=== PATIENT | male | born 1995 | race Caucasian/White ===

== ENCOUNTER 2018-03-12 04:01 | Emergency (ER) | payer OTHER ==
[2018-03-12 04:48] LABS: #Basophils 0.1 thou/uL (0.0-0.2); #Eosinphils 0.2 thou/uL (0.0-0.7); #Lymphocytes 2.7 thou/uL (1.20-3.40); #Monocytes 0.4 thou/uL (0.11-0.59); #Neutrophils 4.9 thou/uL (1.40-6.50); %Basophils 0.9 % (0.0-1.0); %Eosinophils 2.3 % (0.0-10.0); %Lymphocytes 32.2 % (21.0-51.0); %Monocytes 5.3 % (0.0-10.0); %Neutrophils 59.4 % (42.0-75.0); Hemoglobin 16.6 g/dL (14.0-18.0); Mean Corpuscular HGB CONC 34.2 g/dL (32.0-36.0); Mean Corpuscular Hemoglobin 30.7 pg (27.0-31.0); Mean Corpuscular Volume 89.8 fL (78.0-98.0); Mean Platelet Volume 6.1 fL (7.4-10.4); Platelet Count 289 thou/uL (130-400); RBC Distribution Width 12.6 % (11.5-14.5); Red Blood Cell (RBC) Count 5.39 mill/uL (4.70-6.10); White Blood Cell (WBC) Count 8.3 thou/uL (4.8-10.8)
[2018-03-12 05:01] LABS: ALT (SGPT) 106 U/L (8-55); AST (SGOT) 46 U/L (5-34); Albumin 4.6 g/dL (3.5-5.0); Alkaline Phosphatase 123 U/L (40-150); Anion Gap 12 mmol/L (10-20); BUN (Urea Nitrogen) 13 mg/dL (8.9-20.6); Bilirubin, Total 0.6 mg/dL (0.2-1.2); Calc. Creatinine Clearance 0 mL/min (70-130); Calcium 9.5 mg/dL (7.8-10.44); Carbon Dioxide 25 mmol/L (22-29); Chloride 105 mmol/L (98-107); Estimated GFR-MDRD Greater than 90; Globulin 3.1 g/dL (2.4-3.5); Glucose 115 mg/dL (70-105); Potassium 3.7 mmol/L (3.5-5.1); Protein, Total 7.7 g/dL (6.0-8.3); Sodium 138 mmol/L (136-145)
[2018-03-12] MEDS ORDERED: Promethazine HCl 25 MG/ML VIAL ONE (05:34)
[2018-03-12] MEDS ORDERED: Ondansetron ODT 4 MG TAB ONE (05:34)
[2018-03-12 07:11] LABS: Bilirubin Negative (Negative); Blood, Urine Negative (Negative); Clarity TURBID (Clear); Glucose, Urine (Dipstick) Negative (Negative); Leukocyte Negative (Negative); Nitrite Negative (Negative); Protein, Urine (Dipstick) Trace mg/dL (Neg-Trace); Specific Gravity, Urine 1.024 (1.002-1.036); pH, Urine 7.5 (5.0-9.0)
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
== END 2018-03-12 08:10 | disposition home or self-care (01) ==
LOC: ERS 04:01
DX: A09 Infectious gastroenteritis and colitis, unspecified (principal); F41.9 Anxiety disorder, unspecified; F31.9 Bipolar disorder, unspecified; Z79.899 Other long term (current) drug therapy
CPT/HCPCS: 36415; 74022; 80053; 81003; 85025; 96361; 96374; J2550; Q0162

== ENCOUNTER 2019-02-06 19:52 | Emergency (ER) | payer OTHER ==
[~2019-02-06 19:52] MED LIST: ISOVUE-370 76%-LOCM 1 ML ONE
[2019-02-06] MEDS ORDERED: Fentanyl 100 MCG/2 ML VIAL ONE (20:04)
[2019-02-06 20:13] LABS: #Basophils 0.1 thou/uL (0.0-0.2); #Eosinphils 0.2 thou/uL (0.0-0.7); #Lymphocytes 2.2 thou/uL (1.20-3.40); #Monocytes 0.4 thou/uL (0.11-0.59); %Lymphocytes 27.3 % (21.0-51.0); %Neutrophils 63.8 % (42.0-75.0); Hemoglobin 15.2 g/dL (14.0-18.0); Mean Corpuscular HGB CONC 34.4 g/dL (32.0-36.0); Mean Corpuscular Hemoglobin 32.2 pg (27.0-31.0); Mean Corpuscular Volume 93.6 fL (78.0-98.0); Mean Platelet Volume 6.7 fL (7.4-10.4); Platelet Count 261 thou/uL (130-400); RBC Distribution Width 12.3 % (11.5-14.5); Red Blood Cell (RBC) Count 4.71 mill/uL (4.70-6.10); White Blood Cell (WBC) Count 7.9 thou/uL (4.8-10.8)
[2019-02-06 20:18] LABS: INR-International Normal Ratio 1.1; PTT 30.7 SEC (22.9-36.1); Prothrombin Time 14.1 SEC (12.0-14.7)
[2019-02-06] MEDS ORDERED: diphenhydrAMINE 50 MG/ML VIAL ONE (20:20)
[2019-02-06] MEDS ORDERED: Famotidine/PF 20 mg/2ml Vial ONE (20:20)
[2019-02-06] MEDS ORDERED: methylPREDNISolone Sod Succ/PF 125 MG/2 ML VIAL ONE (20:20)
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
[2019-02-06 20:41] LABS: ALT (SGPT) 126 U/L (8-55); AST (SGOT) 70 U/L (5-34); Albumin 4.3 g/dL (3.5-5.0); Alcohol Less than 10 mg/dL (Less than 10); Alkaline Phosphatase 94 U/L (40-150); Anion Gap 13 mmol/L (10-20); BUN (Urea Nitrogen) 14 mg/dL (8.9-20.6); Bilirubin, Total 0.8 mg/dL (0.2-1.2); Calc. Creatinine Clearance 0 mL/min (70-130); Calcium 9.2 mg/dL (7.8-10.44); Carbon Dioxide 23 mmol/L (22-29); Chloride 107 mmol/L (98-107); Estimated GFR-MDRD 82; Globulin 2.6 g/dL (2.4-3.5); Glucose 106 mg/dL (70-105); Potassium 3.9 mmol/L (3.5-5.1); Protein, Total 6.9 g/dL (6.0-8.3); Sodium 139 mmol/L (136-145)
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
[2019-02-06] MEDS ORDERED: Morphine 2 MG/ML SYRINGE ONE (20:59)
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
== END 2019-02-06 22:50 | disposition home or self-care (01) ==
LOC: ERS 19:52
DX: S40.211A Abrasion of right shoulder, initial encounter (principal); F41.9 Anxiety disorder, unspecified; Z79.899 Other long term (current) drug therapy; V89.2XXA Person injured in unspecified motor-vehicle accident, traffic, initial encounter
CPT/HCPCS: 36415; 70450; 71045; 71260; 72125; 74177; 80053; 80307; 83605; 85025; 85610; 85730; 86850; 86900; 86901; 93005; 96374; 96375; G0390; J1200; J2270; J2930; J3010; Q9966; S0028

== ENCOUNTER 2019-04-29 01:19 | Emergency (ER) | payer OTHER ==
[2019-04-29 01:52] LABS: #Basophils 0.1 thou/uL (0.0-0.2); #Eosinphils 0.2 thou/uL (0.0-0.7); #Lymphocytes 2.7 thou/uL (1.20-3.40); #Monocytes 0.4 thou/uL (0.11-0.59); #Neutrophils 4.4 thou/uL (1.40-6.50); %Basophils 0.8 % (0.0-1.0); %Lymphocytes 34.6 % (21.0-51.0); %Monocytes 5.2 % (0.0-10.0); %Neutrophils 57.5 % (42.0-75.0); Hemoglobin 14.9 g/dL (14.0-18.0); Mean Corpuscular HGB CONC 33.6 g/dL (32.0-36.0); Mean Corpuscular Hemoglobin 30.5 pg (27.0-31.0); Mean Corpuscular Volume 90.9 fL (78.0-98.0); Mean Platelet Volume 6.9 fL (7.4-10.4); Platelet Count 277 thou/uL (130-400); RBC Distribution Width 12.5 % (11.5-14.5); Red Blood Cell (RBC) Count 4.89 mill/uL (4.70-6.10); White Blood Cell (WBC) Count 7.7 thou/uL (4.8-10.8)
[2019-04-29 02:22] LABS: ALT (SGPT) 113 U/L (8-55); AST (SGOT) 44 U/L (5-34); Albumin 4.3 g/dL (3.5-5.0); Alkaline Phosphatase 102 U/L (40-150); Anion Gap 13 mmol/L (10-20); BUN (Urea Nitrogen) 15 mg/dL (8.9-20.6); Bilirubin, Total 0.6 mg/dL (0.2-1.2); CK (CPK) 87 U/L (30-200); Calc. Creatinine Clearance 0 mL/min (70-130); Calcium 9.5 mg/dL (7.8-10.44); Carbon Dioxide 22 mmol/L (22-29); Chloride 106 mmol/L (98-107); Estimated GFR-MDRD Greater than 90; Globulin 2.8 g/dL (2.4-3.5); Glucose 98 mg/dL (70-105); Lipase 58 U/L (8-78); Potassium 3.7 mmol/L (3.5-5.1); Protein, Total 7.1 g/dL (6.0-8.3); Sodium 137 mmol/L (136-145)
[2019-04-29] MEDS ORDERED: diphenhydrAMINE 50 MG/ML VIAL ONE (02:34)
[2019-04-29] MEDS ORDERED: Famotidine/PF 20 mg/2ml Vial ONE (02:34)
[2019-04-29] MEDS ORDERED: methylPREDNISolone Sod Succ/PF 125 MG/2 ML VIAL ONE (02:34)
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
--- NOTE | 2019-04-29 08:04 | RAD ---
CHEST ONE VIEW: Indication: Chest pressure, shortness of breath. Comparison: 02-06-19 IMPRESSION: No acute cardiopulmonary abnormalities. Examination does not appear appreciably changed [facility]. POS: [facility]
[2019-04-29] MEDS ORDERED: ISOVUE-370 76%-LOCM 1 ML ONE (15:57)
== END 2019-04-29 04:25 | disposition home or self-care (01) ==
LOC: ERS 01:19
DX: R07.2 Precordial pain (principal); R10.9 Unspecified abdominal pain; F41.9 Anxiety disorder, unspecified; F32.9 Major depressive disorder, single episode, unspecified; Z79.899 Other long term (current) drug therapy
CPT/HCPCS: 71045; 74177; 80053; 82274; 82550; 83690; 84484; 85025; 85379; 93005; 94760; J0500; J1200; J2930; S0028

== ENCOUNTER 2019-04-29 19:50 | Emergency (ER) | payer OTHER ==
--- NOTE | 2019-04-29 20:19 | RAD ---
XR Hand Lt 3 View STANDARD HISTORY: Fall with hand and wrist pain COMPARISON: None. FINDINGS: There are no signs of fracture or dislocation. IMPRESSION: Negative left hand.
--- NOTE | 2019-04-29 20:19 | RAD ---
XR Wrist 3 Lt View STANDARD HISTORY: Fall with wrist pain COMPARISON: None. FINDINGS: There are no signs of fracture or dislocation. IMPRESSION: Negative left wrist.
== END 2019-04-29 21:20 | disposition home or self-care (01) ==
LOC: ERS 19:50
DX: M79.642 Pain in left hand (principal); F41.9 Anxiety disorder, unspecified; F32.9 Major depressive disorder, single episode, unspecified; Z79.899 Other long term (current) drug therapy; W18.2XXA Fall in (into) shower or empty bathtub, initial encounter
CPT/HCPCS: 71045; 74177; 80053; 82274; 82550; 83690; 84484; 85025; 85379; 93005; 94760; 96372; 96374; 96375; J0500; J1200; J2930; Q9966; S0028

== ENCOUNTER 2019-05-15 19:07 | Emergency (ER) | payer OTHER ==
[2019-05-15 20:12] LABS: #Basophils 0.1 thou/uL (0.0-0.2); #Eosinphils 0.1 thou/uL (0.0-0.7); #Monocytes 0.4 thou/uL (0.11-0.59); #Neutrophils 5.5 thou/uL (1.40-6.50); %Eosinophils 1.3 % (0.0-10.0); %Lymphocytes 32.7 % (21.0-51.0); %Monocytes 4.9 % (0.0-10.0); %Neutrophils 60.1 % (42.0-75.0); Hemoglobin 15.9 g/dL (14.0-18.0); Mean Corpuscular HGB CONC 34.2 g/dL (32.0-36.0); Mean Corpuscular Hemoglobin 31.9 pg (27.0-31.0); Mean Corpuscular Volume 93.3 fL (78.0-98.0); Mean Platelet Volume 6.6 fL (7.4-10.4); Platelet Count 301 thou/uL (130-400); RBC Distribution Width 13.5 % (11.5-14.5); Red Blood Cell (RBC) Count 4.99 mill/uL (4.70-6.10); White Blood Cell (WBC) Count 9.1 thou/uL (4.8-10.8)
[2019-05-15 20:32] LABS: ALT (SGPT) 86 U/L (8-55); AST (SGOT) 42 U/L (5-34); Albumin 4.4 g/dL (3.5-5.0); Alkaline Phosphatase 107 U/L (40-150); Anion Gap 15 mmol/L (10-20); BUN (Urea Nitrogen) 13 mg/dL (8.9-20.6); Bilirubin, Total 1.2 mg/dL (0.2-1.2); Calc. Creatinine Clearance 0 mL/min (70-130); Calcium 9.4 mg/dL (7.8-10.44); Carbon Dioxide 20 mmol/L (22-29); Chloride 110 mmol/L (98-107); Estimated GFR-MDRD 81; Glucose 90 mg/dL (70-105); Potassium 4.3 mmol/L (3.5-5.1); Protein, Total 7.4 g/dL (6.0-8.3); Sodium 141 mmol/L (136-145)
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
[2019-05-15] MEDS ORDERED: Ondansetron ODT 4 MG TAB ONE (21:06)
--- NOTE | 2019-05-15 21:53 | RAD ---
PORTABLE CHEST ONE VIEW: 05/15/19 at 9:41 p.m. HISTORY: Nausea, vomiting. FINDINGS: Comparison made with exam of 04/29/19. The heart size is normal. The lungs are expanded without focal areas of consolidation, pneumothoraces or pleural effusions. IMPRESSION: No radiographic evidence of acute cardiopulmonary process. POS: [facility]
[2019-05-15] MEDS ORDERED: Ondansetron PF 4 MG/2 ML Vial ONE (21:59)
[2019-05-15] MEDS ORDERED: Promethazine HCl 25 MG/ML VIAL ONE (22:23)
--- NOTE | 2019-05-15 22:47 | CT ---
CT ABDOMEN AND PELVIS WITHOUT CONTRAST: 05/15/19 HISTORY: Nausea and vomiting. FINDINGS: Absence of oral and IV contrast reduces the sensitivity of the exam particularly for the evaluation o f solid organs and bowel. The lung bases are clear. There is fatty infiltration of the liver. No free air, free fluid or lympha denopathy seen in the abdomen or pelvis. No calcified gallstones identified. Patient is post appendec carmen. No calculi are seen in the kidneys, ureters or urinary bladder. No hydroureteronephrosis is seen on e ither side. No acute osseous abnormalities are seen. The small bowel loops are not abnormally dilate d. IMPRESSION: 1. Fatty liver. 2. No evidence of urinary tract calculi or obstruction. POS: [facility]
== END 2019-05-16 00:25 | disposition home or self-care (01) ==
LOC: ERS 19:07
DX: K22.6 Gastro-esophageal laceration-hemorrhage syndrome (principal); R11.10 Vomiting, unspecified; R55 Syncope and collapse; R10.9 Unspecified abdominal pain; F41.9 Anxiety disorder, unspecified; F32.9 Major depressive disorder, single episode, unspecified; F17.290 Nicotine dependence, other tobacco product, uncomplicated; Z79.899 Other long term (current) drug therapy
CPT/HCPCS: 36415; 70450; 71045; 74176; 80053; 82274; 82550; 83690; 85025; 96361; 96365; 96375; J2405; J2550; Q0162

== ENCOUNTER 2019-05-19 15:36 | Emergency (ER) | payer OTHER ==
[2019-05-19 16:39] LABS: #Eosinphils 0.2 thou/uL (0.0-0.7); #Lymphocytes 2.3 thou/uL (1.20-3.40); #Monocytes 0.4 thou/uL (0.11-0.59); #Neutrophils 2.3 thou/uL (1.40-6.50); %Basophils 0.6 % (0.0-1.0); %Eosinophils 3.2 % (0.0-10.0); %Lymphocytes 44.6 % (21.0-51.0); %Monocytes 6.9 % (0.0-10.0); %Neutrophils 44.8 % (42.0-75.0); Hemoglobin 14.9 g/dL (14.0-18.0); Mean Corpuscular HGB CONC 35.4 g/dL (32.0-36.0); Mean Corpuscular Hemoglobin 32.8 pg (27.0-31.0); Mean Corpuscular Volume 92.6 fL (78.0-98.0); Mean Platelet Volume 6.5 fL (7.4-10.4); Platelet Count 253 thou/uL (130-400); RBC Distribution Width 13.5 % (11.5-14.5); Red Blood Cell (RBC) Count 4.56 mill/uL (4.70-6.10); White Blood Cell (WBC) Count 5.1 thou/uL (4.8-10.8)
[2019-05-19 17:01] LABS: Bilirubin Negative (Negative); Blood, Urine Negative (Negative); Clarity Clear (Clear); Glucose, Urine (Dipstick) Normal (Negative); Leukocyte Negative Leu/uL (Negative); Nitrite Negative (Negative); Protein, Urine (Dipstick) 20 mg/dL (Neg-Trace); Urobilinogen Normal mg/dL (Less than 2)
[2019-05-19 17:03] LABS: ALT (SGPT) 84 U/L (8-55); AST (SGOT) 56 U/L (5-34); Albumin 4.3 g/dL (3.5-5.0); Alkaline Phosphatase 92 U/L (40-150); Anion Gap 13 mmol/L (10-20); BUN (Urea Nitrogen) 16 mg/dL (8.9-20.6); Bilirubin, Total 0.8 mg/dL (0.2-1.2); Calc. Creatinine Clearance 0 mL/min (70-130); Calcium 9.1 mg/dL (7.8-10.44); Carbon Dioxide 25 mmol/L (22-29); Chloride 106 mmol/L (98-107); Estimated GFR-MDRD 71; Globulin 2.9 g/dL (2.4-3.5); Glucose 84 mg/dL (70-105); Lipase 40 U/L (8-78); Potassium 3.8 mmol/L (3.5-5.1); Protein, Total 7.2 g/dL (6.0-8.3); Sodium 140 mmol/L (136-145)
[2019-05-19] MEDS ORDERED: Ondansetron PF 4 MG/2 ML Vial ONE (18:25)
[2019-05-19] MEDS ORDERED: Pantoprazole 40 MG VIAL ONE (18:26)
[2019-05-19 18:49] LABS: Amphetamine Not Detected (NotDetected); Barbiturates Screen Not Detected (NotDetected); Benzodiazepine Screen Detected (NotDetected); Cocaine Metabolite Screen Not Detected (NotDetected); Medtox Control Line Valid? VALID (VALID); Medtox Reader # READER 4; Methadone Not Detected (NotDetected); Methamphetamine Not Detected (NotDetected); Opiate Screen Not Detected (NotDetected); Oxycodone Screen Not Detected (NotDetected); Phencyclidine (PCP) Not Detected (NotDetected); THC/Cannabinoid Screen Not Detected (NotDetected); Tricyclic Screen Not Detected (NotDetected)
--- NOTE | 2019-05-19 18:56 | ULT ---
Sonogram right upper quadrant HISTORY: Right upper quadrant pain. FINDINGS: Exam limited due to extensive bowel gas. Gallbladder unremarkable. No stones visible. Commo n duct is obscured. No biliary dilatation is evident. Liver is diffusely echogenic. No free fluid. IMPRESSION: No evidence of gallstones or biliary obstruction. Hepatic steatosis.
== END 2019-05-19 19:43 | disposition home or self-care (01) ==
LOC: ERS 15:36
DX: R11.2 Nausea with vomiting, unspecified (principal); R42 Dizziness and giddiness; F41.9 Anxiety disorder, unspecified; F32.9 Major depressive disorder, single episode, unspecified; F17.290 Nicotine dependence, other tobacco product, uncomplicated; Z79.899 Other long term (current) drug therapy
CPT/HCPCS: 36415; 76705; 80053; 80306; 81003; 83690; 85025; 96361; 96374; 96375; C9113; J2405

== ENCOUNTER 2019-05-20 15:44 | Emergency (ER) | payer OTHER ==
[2019-05-20 16:39] LABS: Hemoglobin 15.5 g/dL (14.0-18.0); Mean Corpuscular HGB CONC 35.3 g/dL (32.0-36.0); Mean Corpuscular Hemoglobin 32.8 pg (27.0-31.0); Mean Corpuscular Volume 92.8 fL (78.0-98.0); Mean Platelet Volume 6.3 fL (7.4-10.4); Platelet Count 288 thou/uL (130-400); RBC Distribution Width 13.7 % (11.5-14.5); Red Blood Cell (RBC) Count 4.74 mill/uL (4.70-6.10); White Blood Cell (WBC) Count 4.5 thou/uL (4.8-10.8)
[2019-05-20 16:54] LABS: Eosinophils 2 % (0-10); Lymphocytes 58 % (21-51); MDiff Complete? YES; Monocytes 2 % (0-10); Neutrophil 37 % (42-75); Platelet Morphology Comment Appears Adequate; RBC Morphology Normal
[2019-05-20 16:57] LABS: ALT (SGPT) 91 U/L (8-55); AST (SGOT) 55 U/L (5-34); Albumin 4.7 g/dL (3.5-5.0); Alkaline Phosphatase 96 U/L (40-150); Anion Gap 13 mmol/L (10-20); BUN (Urea Nitrogen) 15 mg/dL (8.9-20.6); Bilirubin, Total 0.7 mg/dL (0.2-1.2); Calc. Creatinine Clearance 0 mL/min (70-130); Calcium 9.6 mg/dL (7.8-10.44); Carbon Dioxide 24 mmol/L (22-29); Chloride 108 mmol/L (98-107); Estimated GFR-MDRD 70; Glucose 80 mg/dL (70-105); Potassium 3.8 mmol/L (3.5-5.1); Protein, Total 7.7 g/dL (6.0-8.3); Sodium 141 mmol/L (136-145)
[2019-05-20 18:16] LABS: Acetaminophen Less than 6.0 mcg/mL (10.0-30.0); Alcohol Less than 10 mg/dL (Less than 10); CK (CPK) 125 U/L (30-200); Salicylate Less than 8.0 mg/dL (15.0-30.0)
[2019-05-20 19:19] LABS: Bilirubin Negative (Negative); Blood, Urine Negative (Negative); Clarity Clear (Clear); Glucose, Urine (Dipstick) Normal (Negative); Leukocyte Negative Leu/uL (Negative); Nitrite Negative (Negative); Protein, Urine (Dipstick) 20 mg/dL (Neg-Trace)
[2019-05-20 19:30] LABS: Amphetamine Not Detected (NotDetected); Barbiturates Screen Not Detected (NotDetected); Benzodiazepine Screen Detected (NotDetected); Cocaine Metabolite Screen Not Detected (NotDetected); Medtox Control Line Valid? VALID (VALID); Medtox Reader # READER 1; Methadone Not Detected (NotDetected); Methamphetamine Not Detected (NotDetected); Opiate Screen Not Detected (NotDetected); Oxycodone Screen Not Detected (NotDetected); Phencyclidine (PCP) Not Detected (NotDetected); THC/Cannabinoid Screen Not Detected (NotDetected); Tricyclic Screen Not Detected (NotDetected)
--- NOTE | 2019-05-21 08:26 | RAD ---
RIGHT HAND 3 VIEWS: HISTORY: Injury. Right hand pain. FINDINGS/IMPRESSION: No acute fracture or dislocation is seen. POS: [facility]
== END 2019-05-21 04:38 ==
LOC: ERS 15:44 → EEVIPCON 15:44 → ERS 05-21 04:38
DX: S60.221A Contusion of right hand, initial encounter (principal); F41.9 Anxiety disorder, unspecified; R11.2 Nausea with vomiting, unspecified; F32.9 Major depressive disorder, single episode, unspecified; Z79.899 Other long term (current) drug therapy; W22.09XA Striking against other stationary object, initial encounter
CPT/HCPCS: 36415; 80053; 80306; 80307; 81003; 82550; 84484; 85025; 93005; 96372; J0500

== ENCOUNTER 2020-06-07 02:09 | Emergency (ER) | payer OTHER ==
[2020-06-07] MEDS ORDERED: Acetaminophen 500 MG TAB ONE (02:30)
[2020-06-07] MEDS ORDERED: Famotidine/PF 20 mg/2ml Vial ONE (03:13)
[2020-06-07] MEDS ORDERED: diphenhydrAMINE 50 MG/ML VIAL ONE (03:13)
[2020-06-07] MEDS ORDERED: methylPREDNISolone Sod Succ/PF 125 MG/2 ML VIAL ONE (03:13)
[2020-06-07 03:44] LABS: #Basophils 0.1 thou/uL (0.0-0.2); #Eosinphils 0.2 thou/uL (0.0-0.7); #Lymphocytes 3.1 thou/uL (1.20-3.40); #Monocytes 0.4 thou/uL (0.11-0.59); #Neutrophils 3.7 thou/uL (1.40-6.50); %Basophils 1.4 % (0.0-1.0); %Eosinophils 2.9 % (0.0-10.0); %Lymphocytes 40.7 % (21.0-51.0); %Monocytes 5.7 % (0.0-10.0); %Neutrophils 49.3 % (42.0-75.0); Hemoglobin 17.4 g/dL (14.0-18.0); Mean Corpuscular HGB CONC 33.7 g/dL (32.0-36.0); Mean Platelet Volume 7.2 fL (7.4-10.4); Platelet Count 249 thou/uL (130-400); RBC Distribution Width 13.1 % (11.5-14.5); Red Blood Cell (RBC) Count 5.62 mill/uL (4.70-6.10); White Blood Cell (WBC) Count 7.6 thou/uL (4.8-10.8)
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
[2020-06-07] MEDS ORDERED: Iopamidol 370 76% 100 ML VIAL ONE (16:11)
== END 2020-06-07 04:41 ==
LOC: ERS 02:09
DX: S16.1XXA Strain of muscle, fascia and tendon at neck level, initial encounter (principal); S80.11XA Contusion of right lower leg, initial encounter; M54.6 Pain in thoracic spine; R47.81 Slurred speech; F41.9 Anxiety disorder, unspecified; F32.9 Major depressive disorder, single episode, unspecified; F17.200 Nicotine dependence, unspecified, uncomplicated; Z79.899 Other long term (current) drug therapy; V43.52XA Car driver injured in collision with other type car in traffic accident, initial encounter
CPT/HCPCS: 70450; 72125; 74177; 85025; 96374; 96375; J1200; J2930; Q9967; S0028